=== PATIENT | female | born 1995 | race Caucasian/White ===

== ENCOUNTER 2018-11-21 19:31 | Emergency (ER) | payer OTHER ==
--- NOTE | 2018-11-21 21:45 | ER Document Report ---
HPI - HPI Patient complains to provider of: Pelvic cramping Time Seen by Provider: 11/21/18 21:21 Onset/Duration: Persistent Quality of pain: Cramping Pain Level: 3 Context: Patient states that she is about a month and has had left lower pelvic cramping that has been persistent for the past 3 days. Patient denies any fever nausea vomiting or diarrhea. Patient does report decreased appetite. Patient denies any urinary symptoms. Patient denies any vaginal bleeding or discharge. Patient denies any concerns about any sexually transmitted infection. Patient was concerned because when she saw her primary doctor she was told that she cannot get into see the [facility] L[facility] OPERATOR until she is at least 8 weeks . Associated Symptoms: Other - Left lower pelvic pain. denies: Fever Exacerbated by: Denies Relieved by: Denies Similar symptoms previously: No Recently seen / treated by doctor: No - ROS ROS below otherwise negative: Yes Systems Reviewed and Negative: Yes All other systems reviewed and negative - CONSTITUTIONAL Constitutional: DENIES: Fever, Chills - CARDIOVASCULAR Cardiovascular: DENIES: Chest pain - RESPIRATORY Respiratory: DENIES: Coughing - GASTROINTESTINAL Gastrointestinal: REPORTS: Abdominal Pain. DENIES: Patient vomiting, Constipation - URINARY Urinary: DENIES: Dysuria, Urgency, Frequency - REPRODUCTIVE LMP: 10/19/18 Reproductive: REPORTS: :. DENIES: Abnormal bleeding / discharge - MUSCULOSKELETAL Musculoskeletal: DENIES: Back Pain - DERM Skin Color: Normal Skin Problems: None Past Medical History - General Information source: Patient - Social History Smoking Status: Never Smoker Frequency of alcohol use: None Drug Abuse: None Occupation: None Lives with: Spouse/Significant other Family History: Reviewed & Not Pertinent - Medical History Medical History: Negative Past Surgical History: Reports: Hx Gynecologic Surgery Vertical Provider Document - CONSTITUTIONAL Agree With Documented VS: Yes Exam Limitations: No Limitations General Appearance: WD/WN, No Apparent Distress - INFECTION CONTROL TRAVEL OUTSIDE OF THE [place] IN LAST 30 DAYS: No - HEENT HEENT: Atraumatic, Normocephalic - NECK Neck: Normal Inspection, Supple. negative: Lymphadenopathy-Left, Lymphade nopathy-Right - RESPIRATORY Respiratory: Breath Sounds Normal, No Respiratory Distress, Chest Non-Tender - CARDIOVASCULAR Cardiovascular: Regular Rate, Regular Rhythm, No Murmur - GI/ABDOMEN Gastrointestinal: Abdomen Soft, Abdomen Non-Tender, No Organomegaly, Normal Bowel Sounds - BACK Back: Normal Inspection. negative: CVA Tenderness-Right, CVA Tenderness-Left - MUSCULOSKELETAL/EXTREMETIES Musculoskeletal/Extremeties: ASHER ANDRADE - NEURO Level of Consciousness: Awake, Alert, Appropriate Motor/Sensory: No Motor Deficit - DERM Integumentary: Warm, Dry, No Rash Course - Re-evaluation Re-evalutation: 11/21/18 23:50 Patient's abdomen soft, no guarding. Patient nontoxic in appearance. Patient denies any concerns about any STI. Patient without any fever. Patient does have some leukocyte esterase noted on urinalysis. Urine culture is pending at this time. Patient encouraged to follow-up with her primary doctor or gynecolo gist for a recheck. 11/22/18 00:05 Discussed ectopic precautions with patient as she does not technically have an intrauterine at this time although she does have an intrauterine gestational sac noted on ultrasound. Patient advised that she will need to have her hormone level rechecked and have a repeat ultrasound in the next 2 weeks. Patient encouraged to return immediately for any new or worsening pain symptoms. - Vital Signs Vital signs: Temp Pulse Resp BP Pulse Ox 99.0 F 94 16 139/75 H 100 11/21/18 19:50 11/21/18 19:50 11/21/18 19:50 11/21/18 19:50 11/21/18 19:50 - Laboratory Result Diagrams: 11/21/18 22:05 Laboratory results interpreted by me: 11/21/18 23:50 Labs- Entire Visit 11/21/18 11/21/18 11/21/18 22:05 22:05 22:45 WBC 9.7 RBC 4.03 Hgb 13.2 Hct 38.3 MCV 95 MCH 32.8 MCHC 34.5 RDW 13.3 Plt Count 257 Seg Neutrophils % 69.1 Lymphocytes % 21.4 Monocytes % 7.6 Eosinophils % 1.4 Basophils % 0.5 Absolute Neutrophils 6.7 Absolute Lymphocytes 2.1 Absolute Monocytes 0.7 Absolute Eosinophils 0.1 Absolute Basophils 0.0 Beta HCG, Quant 488.20 H Total Beta HCG POSITIVE Urine Color YELLOW Urine Appearance CLOUDY Urine pH 6.0 Ur Specific [place] 1.016 Urine Protein NEGATIVE Urine Glucose (UA) NEGATIVE Urine Ketones NEGATIVE Urine Blood NEGATIVE Urine Nitrite NEGATIVE Urine Bilirubin NEGATIVE Urine Urobilinogen NEGATIVE Ur Leukocyte Esterase MODERATE H Urine WBC (Auto) 8 Urine RBC (Auto) 2 Squamous Epi Cells Auto 20 Urine Mucus (Auto) RARE Urine Ascorbic Acid NEGATIVE - Diagnostic Test Radiology reviewed: Reports reviewed Discharge - Discharge Clinical Impression: Pelvic pain UTI (urinary tract infection) Qualifiers: Urinary tract infection type: site unspecified Hematuria presence: without hematuria Qualified Code(s): N39.0 - Urinary tract infection, site not specified Condition: Stable Disposition: HOME, SELF-CARE Instructions: Cephalexin ([facility]), Ectopic Precaution ([facility]), Urinary Tract Infection ([facility]) Additional Instructions: Return immediately for any new or worsening symptoms Followup with your primary care provider, call tomorrow to make a followup appointment Follow-up with a instructional technology teacher for further evaluation of your . Urine culture is pending, we will call if you need any different treatment Prescriptions: Cephalexin Monohydrate [Keflex 500 mg Capsule] 500 mg PO BID 5 Days capsule Referrals: AMBER CHENG MD [Primary Care Provider] - Follow up as needed [facility] [Provider Group] - Follow up in 3-5 days
[2018-11-21 22:16] LABS: ABSOLUTE EOSINOPHILS # (AUTO) 0.1 10^3/uL (0.0-0.6); ABSOLUTE LYMPHOCYTES (AUTO) 2.1 10^3/uL (0.5-4.7); ABSOLUTE MONOCYTES (AUTO) 0.7 10^3/uL (0.1-1.4); ABSOLUTE NEUT (AUTO) 6.7 10^3/uL (1.7-8.2); BASOPHILS % (AUTO) 0.5 % (0-2); EOSINOPHILS % (AUTO) 1.4 % (0-6); HEMATOCRIT 38.3 % (36.0-47.0); HEMOGLOBIN 13.2 g/dL (12.0-15.5); LYMPHOCYTES % (AUTO) 21.4 % (13-45); MEAN CORPUSCULAR HEMOGLOBIN 32.8 pg (27.0-33.4); MEAN CORPUSCULAR HGB CONC 34.5 g/dL (32.0-36.0); MEAN CORPUSCULAR VOLUME 95 fl (80-97); MONOCYTES % (AUTO) 7.6 % (3-13); PLATELET COUNT 257 10^3/uL (150-450); RED BLOOD COUNT 4.03 10^6/uL (3.72-5.28); RED CELL DISTRIBUTION WIDTH 13.3 % (11.5-14.0); SEGMENTED NEUTROPHILS % (AUTO) 69.1 % (42-78); TOTAL CELLS COUNTED % (AUTO) 100 %; WHITE BLOOD COUNT 9.7 10^3/uL (4.0-10.5)
--- NOTE | 2018-11-21 23:11 | RADIOLOGY REPORT (SQ) ---
EXAM DESCRIPTION: US TRANSVAGINAL COMPLETED DATE/TME: 11/21/2018 21:44 CLINICAL HISTORY: 23 years, Female, LLQ pain COMPARISON: None. TECHNIQUE: Transverse and longitudinal transvaginal sonographic images of the pelvis in a first trimester patient LIMITATIONS: None. FINDINGS: The uterus measures 9.0 x 5.8 x 5.7 cm. There is a intrauterine gestational sac. There is fluid in the lower endocervical canal. The myometrium is homogenous. The maternal right ovary measures 3.4 x 2.7 x 2.9 cm, the left 3.3 x 1.6 x 1.9 cm. Normal flow to each ovary. No adnexal cyst or mass. No free fluid. Current ultrasound age is 4 weeks 6 days. IMPRESSION: Intrauterine gestational sac with current ultrasound age 4 weeks 6 days. Continued nonemergent obstetric follow-up recommended. Small amount of fluid within the lower endocervical canal copyright 2010 [employer]- All Rights Reserved
[2018-11-21 23:27] LABS: APPEARANCE,URINE CLOUDY; BILIRUBIN,URINE NEGATIVE (NEGATIVE); COLOR,URINE YELLOW; GLUCOSE, URINE NEGATIVE (NEGATIVE); KETONES,URINE NEGATIVE (NEGATIVE); LEUKOCYTE ESTERASE,URINE MODERATE (NEGATIVE); NITRITE,URINE NEGATIVE (NEGATIVE); PROTEIN,URINE NEGATIVE (NEGATIVE); URINE SPECIFIC GRAVITY 1.016; UROBILINOGEN,URINE NEGATIVE mg/dL (<2.0)
[2018-11-21] MEDS ORDERED: CEPHALEXIN 500 MG CAPSULE PO ONE (23:54)
[2018-11-22 00:35] VITALS: BP 112/71
== END 2018-11-22 00:42 | disposition home or self-care (01) ==
LOC: ER 19:31
DX: O23.41 Unspecified infection of urinary tract in pregnancy, first trimester (principal); O26.891 Other specified pregnancy related conditions, first trimester; R10.2 Pelvic and perineal pain; R63.0 Anorexia; Z3A.01 Less than 8 weeks gestation of pregnancy
CPT/HCPCS: 36415; 76817; 81001; 84702; 85025; 87086; 99284

== ENCOUNTER 2019-01-16 20:09 | Emergency (ER) | payer OTHER ==
[2019-01-16 20:39] LABS: APPEARANCE,URINE SLIGHTLY-CLOUDY; BILIRUBIN,URINE NEGATIVE (NEGATIVE); CALCIUM OXALATE CRYSTALS,URINE RARE /HPF; COLOR,URINE YELLOW; GLUCOSE, URINE NEGATIVE (NEGATIVE); KETONES,URINE TRACE mg/dL (NEGATIVE); LEUKOCYTE ESTERASE,URINE SMALL (NEGATIVE); NITRITE,URINE NEGATIVE (NEGATIVE); PROTEIN,URINE NEGATIVE (NEGATIVE); URINE SPECIFIC GRAVITY 1.021; UROBILINOGEN,URINE NEGATIVE mg/dL (<2.0)
[2019-01-16] MEDS ORDERED: CEPHALEXIN 500 MG CAPSULE PO ONE (21:03)
--- NOTE | 2019-01-16 21:07 | ER Document Report ---
HPI - HPI Patient complains to provider of: UTI Time Seen by Provider: 01/16/19 20:54 Pain Level: 3 Context: 23-year old 13-week female emergency department for symptoms consistent with UTI. She says her symptoms presenting exactly like they have. She is having some left-sided cysts lower quadrant pain that radiates around to her back. She is having some dysuria but no frequency or urgency. She denies fever, chills, flank pain. She complains of nausea and vomiting but this is secondary to morning sickness. No other complaints. - REPRODUCTIVE LMP: 10/19 Reproductive: REPORTS: : Past Medical History - Social History Smoking Status: Never Smoker Family History: Reviewed & Not Pertinent Patient has suicidal ideation: No Patient has homicidal ideation: No Renal/ Medical History: Denies: Hx Peritoneal Dialysis Past Surgical History: Reports: Hx Gynecologic Surgery Vertical Provider Document - CONSTITUTIONAL Notes: PHYSICAL EXAMINATION: Reviewed vital signs and charting by RN GENERAL: Alert, interacts well. No acute distress. HEAD: Normocephalic, atraumatic. EYES: Pupils equal and round. Extraocular movements intact. LUNGS: Clear to auscultation bilaterally, no wheezes, rales, or rhonchi. No respiratory distress. HEART: Regular rate and rhythm. No murmur ABDOMEN: soft, non-tender. Gravid. Bowel sounds present. no McBurney's point tenderness, no Iniguze sign. EXTREMITIES: Moves all 4 extremities spontaneously. No edema, No cyanosis. Normal distal neurovascular exam BACK: No CVAT NEUROLOGIC: Oriented and appropriate. Normal speech. PSYCH: Normal affect, normal mood. SKIN: Warm, dry, normal turgor. No rashes or lesions noted. - INFECTION CONTROL TRAVEL OUTSIDE OF THE [place] IN LAST 30 DAYS: No Course - Re-evaluation Re-evalutation: 01/16/19 21:06 Overall well-appearing. Urinalysis was not a clean specimen but considering patient's history and that there were several WBCs we will treat accordingly with Keflex 500 mg twice daily for 7 days. She has a follow-up with her OB early next week. Safe and stable for discharge. - Vital Signs Vital signs: Temp Pulse Resp BP Pulse Ox 98.2 F 78 20 137/71 H 100 01/16/19 20:12 01/16/19 20:12 01/16/19 20:12 01/16/19 20:12 01/16/19 20:12 - Laboratory Laboratory results interpreted by me: 01/16/19 20:20 Urine Ketones TRACE H Ur Leukocyte Esterase SMALL H Urine Ascorbic Acid 40 H Discharge - Discharge Clinical Impression: Urinary tract infection Qualifiers: Urinary tract infection type: acute cystitis Hematuria presence: without hematuria Qualified Code(s): N30.00 - Acute cystitis without hematuria Disposition: HOME, SELF-CARE Instructions: Cephalexin ([facility]), Urinary Tract Infection ([facility]) Additional Instructions: Your urine shows findings consistent with a urinary tract infection. Please take all the antibiotics as directed even if your symptoms have improved. Please follow-up with your OB to discuss the results from them and to discuss your current treatment. Return to emergency room if you develop fever >101F, persistent vomiting, become lethargic, have severe pain in your sides, or any other symptoms that are concerning to you. Prescriptions: Cephalexin Monohydrate [Keflex 500 mg Capsule] 500 mg PO BID 7 Days #14 capsule Referrals: STEPHEN ARREDONDO DO [Primary Care Provider] - Follow up as needed
[2019-01-16 21:44] VITALS: BP 129/76
== END 2019-01-16 21:43 | disposition home or self-care (01) ==
LOC: ER 20:09
DX: N30.00 Acute cystitis without hematuria (principal)
CPT/HCPCS: 81001; 99283

== ENCOUNTER 2019-02-07 12:03 | Emergency (ER) | payer OTHER ==
[2019-02-07 12:07] VITALS: BP 122/71
--- NOTE | 2019-02-07 12:47 | ER Document Report ---
ED General - General Chief Complaint: Pelvic Pain Stated Complaint: PELVIC PAIN Time Seen by Provider: 02/07/19 12:30 Primary Care Provider: STEPHEN ARREDONDO DO [NO LOCAL MD] - Follow up as needed Notes: Patient is a 23-year-old female, currently approximately 16 weeks gravid that presents to the emergency department for chief complaint of low back pain. Patient states has been having pain around her SI joints, over the past few nights, it has become progressively worse over the past few days, she is been taking 1000 mg of Tylenol once daily, she is tried stretching, heating pad without much improvement of her pain. She occasionally will get a tingling paresthesia sensation down the left side of her leg, does not go past the knee. Denies any numbness, weakness in her lower extremities. Denies any saddle a nesthesias or paresthesias. She currently rates the pain as a 6 out of 10 describes as an aching type sensation. She denies any dysuria, hematuria, vaginal bleeding, or discharge. Past Medical History: Denies chronic medical conditions Past Surgical History: Laparoscopy Social History: Denies tobacco, alcohol or drug use. Family History: Reviewed and noncontributory for presenting illness Allergies: Reviewed, see documented allergy list. REVIEW OF SYSTEMS: Other than noted above, the 12 point review of systems was reviewed with the patient and were negative, all pertinent findings are included in the HPI. PHYSICAL EXAMINATION: Vital signs reviewed, nursing noted reviewed. GENERAL: Well-appearing, well-nourished and in no acute distress. HEAD: Atraumatic, normocephalic. EYES: Eyes appear normal, sclera anicteric, conjunctiva are normal. ENT: Moist mucous membranes. NECK: Normal range of motion, supple without lymphadenopathy LUNGS: Breath sounds clear to auscultation bilaterally and equal. No wheezes rales or rhonchi. HEART: Regular rate and rhythm without murmurs EXTREMITIES: Patient has discomfort with SOFIE testing bilaterally, and tenderness to palpation over the SI joints bilaterally. Negative straight leg raising bilaterally. Otherwise good range of motion of the hips, knees and ankles, upper extremities are unremarkable. NEUROLOGICAL: No focal neurological deficits. Moves all extremities spontaneously Motor and sensory grossly intact on exam. Muscular motor strength distally in all extremities particular the lower extremities is +5/5 bilaterally, normal reflexes in the patellar and Achilles tendon reflexes are +2/4 bilaterally and equal. PSYCH: Normal mood, normal affect. SKIN: Warm, Dry, normal turgor, no rashes or lesions noted on exposed skin TRAVEL OUTSIDE OF THE [place] IN LAST 30 DAYS: No - Related Data Allergies/Adverse Reactions: latex Allergy (Verified 02/07/19 12:03) Past Medical History - Social History Smoking Status: Never Smoker Chew tobacco use (# tins/day): No Frequency of alcohol use: None Drug Abuse: None Family History: Reviewed & Not Pertinent Patient has suicidal ideation: No Patient has homicidal ideation: No Renal/ Medical History: Denies: Hx Peritoneal Dialysis Past Surgical History: Reports: Hx Gynecologic Surgery Physical Exam - Vital signs Vitals: Temp Pulse Resp BP Pulse Ox 98.5 F 83 18 122/71 99 02/07/19 12:04 02/07/19 12:04 02/07/19 12:04 02/07/19 12:04 02/07/19 12:04 Course - Re-evaluation Re-evalutation: Patient seen and examined vital signs reviewed. Patient was evaluated and treated as appropriate for the patient's presenting symptoms and complaint, with consideration of any critical or life threatening conditions that may be associated with their obtained history and exam as noted above. Patient had received Tylenol prior to ED arrival, discussed with her at length, this is likely SI joint pain, with possible sciatica related to it, given that she had some paresthesias, treatment options are limited in , as corticosteroids are essentially contraindicated at this point in , and NSAIDs are contraindicated, I recommended stretching give the patient specific exercises, also encouraged her to use a heating pad, and 1000 mg of Tylenol 3 times daily and to follow-up with the REINSURANCE ACCOUNTANT. Evaluation was most consistent with SI joint pain, sciatica. Plan of care was discussed with the patient at this point, after careful consideration I feel that that patient can be discharged from the emergency department, the patient was educated treatments and reasons to return to the emergency department based on their presumed diagnosis as noted above, they were advised to followup with a primary care physician in 2-3 days. Patient was agreeable to plan of care. *Note is created using voice recognition software and may contain spelling, syntax or grammatical errors. - Vital Signs Vital signs: Temp Pulse Resp BP Pulse Ox 98.5 F 83 18 122/71 99 02/07/19 12:04 02/07/19 12:04 02/07/19 12:04 02/07/19 12:04 02/07/19 12:04 Discharge - Discharge Clinical Impression: Sacroiliac joint pain Sciatica Qualifiers: Laterality: left Qualified Code(s): M54.32 - Sciatica, left side Condition: Stable Disposition: HOME, SELF-CARE Instructions: Sciatica ([facility]) Additional Instructions: Please take [id number] Tylenol extra strength, 1000 mg 3 times daily, to help with your pain, recommend doing the stretches we discussed, throughout the day, particularly before sleep, if you develop numbness, or weakness in your left or right leg, these would be reasons to return to the emergency department. Please otherwise follow-up with your REINSURANCE ACCOUNTANT. Referrals: STEPHEN ARREDONDO DO [NO LOCAL MD] - Follow up as needed
== END 2019-02-07 12:59 | disposition home or self-care (01) ==
LOC: ER 12:03
DX: O99.89 Other specified diseases and conditions complicating pregnancy, childbirth and the puerperium (principal); M54.42 Lumbago with sciatica, left side; M53.3 Sacrococcygeal disorders, not elsewhere classified; O26.899 Other specified pregnancy related conditions, unspecified trimester; R20.2 Paresthesia of skin; Z3A.00 Weeks of gestation of pregnancy not specified; Z91.040 Latex allergy status
CPT/HCPCS: 99283